=== PATIENT | male | born 1975 | race Native Hawaiian/Other Pacific Islander ===

== ENCOUNTER 2017-03-16 19:05 | Emergency (ER) | payer BC ==
[~2017-03-16] VITALS: Ht 172.7 cm; Wt 83.0 kg
[2017-03-16 19:54] LABS: PLATELET COUNT 264 K/uL (142-355)
[2017-03-16 19:59] LABS: POTASSIUM 3.9 mmol/L (3.6-5.2)
[2017-03-16 22:38] VITALS: BP 130/79; TEMP 98.3
== END 2017-03-16 22:40 | disposition home or self-care (01) ==
LOC: ED 19:05
DX: N20.1 Calculus of ureter (principal); N23 Unspecified renal colic
CPT/HCPCS: 36415; 80053; 80307; 81000; 85027; 96374; 99284; J1885; Q9963

== ENCOUNTER 2017-11-07 20:42 | Emergency (ER) | payer BC ==
[~2017-11-07] VITALS: Ht 172.7 cm; Wt 91.6 kg
[2017-11-07 21:37] LABS: PLATELET COUNT 239 K/uL (142-355)
[2017-11-07 23:26] VITALS: TEMP 98.6
[2017-11-07 23:30] VITALS: BP 160/89
== END 2017-11-07 23:26 | disposition home or self-care (01) ==
LOC: ED 20:42
PROVIDERS: Family Medicine
DX: N20.0 Calculus of kidney (principal)
CPT/HCPCS: 36415; 80053; 81000; 85027; 96365; 96374; 99284; J1885

== ENCOUNTER 2018-05-06 02:26 | Emergency (ER) | payer BC ==
[~2018-05-06] VITALS: Ht 170.2 cm; Wt 97.5 kg
[2018-05-06 03:01] LABS: PLATELET COUNT 305 K/uL (142-355)
[2018-05-06 03:12] LABS: POTASSIUM 4.7 mmol/L (3.6-5.2)
[2018-05-06 06:36] VITALS: BP 138/88; TEMP 97.9
== END 2018-05-06 06:36 | disposition home or self-care (01) ==
LOC: ED 02:26
PROVIDERS: Emergency Medicine
DX: N20.1 Calculus of ureter (principal)
CPT/HCPCS: 36415; 80053; 81000; 85027; 96365; 96375; 99284; J0696; J1885; Q9963